=== PATIENT | female | born 1980 | race Caucasian/White ===

== ENCOUNTER → 2016-05-08 | Outpatient (CLI) | payer BC ==
[~2016-05-08] MED LIST: AZIT250T81 PO; BENZ-22 PO; METH4TAB27 PO; PRED20TA PO
[2016-05-08 19:25] VITALS: BP 130/86
--- NOTE | 2016-05-08 19:25 | Urgent Care T Sheet Gen (E) ---
Intake General Temperature (Fahrenheit): 97.8 Pulse: 113 Blood Pressure Systolic: 130 Blood Pressure Diastolic: 86 Respirations: 20 SPO2: 97 Description of Symptoms Patient presents with illness for over a week. Notes nasal congestion, chest congestion and cough. Was recently treated for bronchitis and was treated with Amoxicillin, Prednisone and Symbicort. History of Present Illness Home Meds Active Scripts Prednisone 20 Mg [id number] Mg PO DAILY #10 TAB Take 40mg po x 3 days then take 20mg po x 4 days. Prov:CARLOS LOVING 03/11/16 Respiratory Constitutional Symptoms: No syptoms reported EENTM: Nose Congestion Throat pain Respiratory: Cough Cardiovascular: No symptoms reported Gastrointestinal/Abdominal: No symptoms reported All Other Systems Reviewed Remaining Systems: All other systems reviewed with negative findings Physical Exam Physical Exam General Appearance: WD/WN No apparent distress Eyes, Ears, Nose, Throat Ex: TMs normal Pharyngeal erythema (cobblestone appearance) Other (nasal congestion with clear drainage) Neck Exam: Supple Lymphadenopathy Respiratory Exam: RhonchiNo Wheezes Cardiovascular Exam: Regular rate, rhythm Departure Urgent Care Impression Impression: Primary Impression: Bronchitis Departure Disposition: HOME OR SELF-CARE Condition: Stable Referrals: NAVEED BUTT MD (PCP) Additional Instructions: I have started the patient on a Z-Pack for infection I have also prescribed Medrol dose pack for inflammation Tessalon pearls as needed for cough Rest. Fluids Return as needed Patient understands DC instructions. All questions were answered. Scripts Benzonatate (Tessalon Perles)100 Mg [id number] Mg PO TID PRN COUGH #30 CAP Ref 1 Take 1-2 tabs po TID prn cough. Prov:CARLOS LOVING 05/08/16 Methylprednisolone (Medrol Dosepack)21 Tab/Pkt Tablet6 Tab PO DAILY Inflammation #1 PKT Ref 0 Take 6 tabs po on day 1 then decrease by 1 tab daily until packet is gone. Prov:CARLOS LOVING 05/08/16 Azithromycin (Zithromax Z-John)6 Tab/Pkt [id number] Mg PO SEE INSTRUCTIONS #6 TAB Ref 0 Day One: Take 2 tablets by mouth Days Two-Five: Take 1 tablet by mouth Prov:CARLOS LOVING 05/08/16 End of report . CARLOS LOVING May 08, 2016 19:25
== END ==
LOC: MHUC 18:39
PROVIDERS: ATTEND Physician Assistant
DX: J40 Bronchitis, not specified as acute or chronic (principal)
CPT/HCPCS: 99213

== ENCOUNTER → 2016-06-10 | Outpatient (CLI) | payer BC | LOC: RAD 09:56 | PROVIDERS: ATTEND Otolaryngology | DX: J32.0 Chronic maxillary sinusitis (principal); J32.1 Chronic frontal sinusitis | CPT/HCPCS: 70486; 76376 ==